=== PATIENT | female | born 1970 | race Caucasian/White ===

== ENCOUNTER → 2023-04-28 19:04 | Outpatient (REF) | payer BC, SELFPAY | LOC: MRI 19:04 | PROVIDERS: ATTENDING PHYSICIAN Podiatrist Foot & Ankle Surgery; FAMILY PHYSICIAN Physician Assistant | DX: M72.2 Plantar fascial fibromatosis (principal) | CPT/HCPCS: 73721 ==

== ENCOUNTER → 2024-01-27 07:24 | Outpatient (REF) | payer BC, SELFPAY | LOC: WDC 07:24 | PROVIDERS: ATTENDING PHYSICIAN Obstetrics & Gynecology Gynecology; FAMILY PHYSICIAN Physician Assistant | DX: Z12.31 Encounter for screening mammogram for malignant neoplasm of breast (principal) | CPT/HCPCS: 77063; 77067 ==

== ENCOUNTER → 2024-12-19 11:47 | Outpatient (REF) | payer BC, SELFPAY | LOC: MRI 3T 11:47 | PROVIDERS: ATTENDING PHYSICIAN Podiatrist Foot & Ankle Surgery; FAMILY PHYSICIAN Family Medicine | DX: M79.671 Pain in right foot (principal); M72.2 Plantar fascial fibromatosis | CPT/HCPCS: 73721 ==

== ENCOUNTER → 2025-01-28 06:56 | Outpatient (REF) | payer BC, SELFPAY | LOC: WDC 06:56 | PROVIDERS: ATTENDING PHYSICIAN Obstetrics & Gynecology Gynecology; FAMILY PHYSICIAN Physician Assistant | DX: Z12.31 Encounter for screening mammogram for malignant neoplasm of breast (principal) | CPT/HCPCS: 77063; 77067 ==